=== PATIENT | male | born 1955 | race Caucasian/White ===

== ENCOUNTER → 2020-06-10 09:26 | Outpatient (BNVA) | payer OTHER, SELFPAY | PROVIDERS: PCP Family Medicine; Visit Provider Orthopaedic Surgery | DX: Z76.89 Persons encountering health services in other specified circumstances (principal) ==

== ENCOUNTER 2020-07-06 13:00 | Outpatient (RCR) | payer OTHER, SELFPAY ==
--- NOTE | 2020-07-06 13:45 | MHC.OT.DC ---
[address] [phone] F: [phone] Occupational Therapy Discharge Note Provider: JONH QUIÑONEZ MD Diagnosis: OLECRANON BURSITIS Date of Surgery: Date of Evaluation: 06/18/20 Date of Discharge: Treatments to Date: 7 Cancellations to Date: No Shows to Date: Discharge Status: Achieved Goals Independent with HEP Discharge Summary: IMPROVING BURSA SWELLING. NOW NON TENDER AND DEC IN VOLUME . ELBOW CIRCUMFERENCE 26 CM FROM 28 CM. GOALS MET. Electronically Signed By: AIMEE GONZALEZ OT, CHT CLT Reviewed/agree with student documentation: N/A Therapist: AIMEE GONZALEZ OT, CHT CLT Please Sign and return to therapist, thank you for your referral.
== END 2020-07-06 13:48 | disposition other institution (70) ==
LOC: HO.OT 13:00
PROVIDERS: PCP Physician Assistant; Visit Provider Orthopaedic Surgery
DX: M70.22 Olecranon bursitis, left elbow (principal)
CPT/HCPCS: 97033; 97035; 97140; 97165

== ENCOUNTER 2020-08-31 10:49 | Outpatient (REF) | payer OTHER, SELFPAY ==
--- NOTE | ~2020-08-31 | XR_ITS ---
EXAMINATION: XR SHOULDER, RIGHT CLINICAL INFORMATION: Pain COMPARISON: Previous x-ray June 2011 and MRI June 2011 TECHNIQUE: Three views of the right shoulder. FINDINGS: Bone alignment is normal. No fracture or dislocation is seen. The glenohumeral joint is normal. 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 Soft tissues are unremarkable. XR/XR shoulder RT min 2V IMPRESSION: Mild arthritis at the acromioclavicular joint.
== END 2020-08-31 10:50 | disposition home or self-care (01) ==
LOC: HO.HOSX 10:49
PROVIDERS: Visit Provider Orthopaedic Surgery
DX: Z13.89 Encounter for screening for other disorder (principal)

== ENCOUNTER → 2020-09-02 11:02 | Outpatient (BNVA) | payer OTHER, SELFPAY | PROVIDERS: PCP Physician Assistant; Visit Provider Orthopaedic Surgery | DX: M75.41 Impingement syndrome of right shoulder (principal) | CPT/HCPCS: 20610; 73030; J1040 ==